=== PATIENT | male | born 1980 | race Caucasian/White ===

== ENCOUNTER 2020-05-15 11:44 | Emergency (ER) | payer MEDICAID ==
[~2020-05-15] VITALS: Ht 182.9 cm; Wt 83.0 kg
--- NOTE | 2020-05-15 11:53 | NUR ---
LASHELL LEIGH FROM [facility]. PT C/O +ETOH, 8-12 HURRICANES DAILY, 6 ALREADY TODAY. 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 PT CONNECTED TO MONITORING. PT HAS ALL OF HIS PERSONAL BELONGINGS WITH HIM, HE CHECKED OUT OF THE MOTEL. AWAITING ORDERS AT THIS TIME.
--- NOTE | 2020-05-15 12:33 | NUR ---
PT COMPLIANT WITH LAB DRAWN. PT AWARE OF NEED FOR URINE, URINAL PROVIDED. PT USED RESTROOM UPON ARRIVAL TO ED.
[2020-05-15 12:39] LABS: BASOPHILS # (AUTO) 0.05 x10^3/uL (0-0.1); BASOPHILS % (AUTO) 1 % (0-1); EOSINOPHILS % (AUTO) 3 % (1-7); LYMPHOCYTES # (AUTO) 2.34 x10^3/uL (1-3.4); LYMPHOCYTES % (AUTO) 34 % (22-44); MD NO; MEAN CORPUSCULAR HEMOGLOBIN 31.4 pg (27.5-34.5); MEAN CORPUSCULAR HGB CONC 33.7 g/dL (33.2-36.2); MEAN PLATELET VOLUME 8.3 fL (7.4-10.4); MONOCYTES # (AUTO) 0.56 x10^3/uL (0.2-0.8); MONOCYTES % (AUTO) 8 % (2-9); NEUTROPHILS # (AUTO) 3.65 x10^3/uL (1.8-6.8); NEUTROPHILS % (AUTO) 54 % (42-75); PLATELET COUNT 152 x10^3/uL (130-400); RED BLOOD COUNT 4.94 x10^6/uL (4.38-5.82); RED CELL DISTRIBUTION WIDTH 14.8 % (9.4-14.8)
[2020-05-15 12:51] LABS: ALBUMIN 3.7 g/dL (3.4-5.0); ANION GAP 4 mmol/L (5-15); CALCIUM 8.4 mg/dL (8.5-10.1); CHLORIDE 114 mmol/L (98-107); CREATININE 0.84 mg/dL (0.7-1.3)
--- NOTE | 2020-05-15 12:53 | NUR ---
PT PROVIDED URINE SAMPLE. UDS COLLECTED AND TAKEN TO LAB.
[2020-05-15 13:03] LABS: ALANINE AMINOTRANSFERASE 30 U/L (12-78); ALKALINE PHOSPHATASE 138 U/L (45-117); BILIRUBIN,TOTAL 0.2 mg/dL (0.2-1.0); SALICYLATE LEVEL 5.3 mg/dL (2.8-20.0); TOTAL PROTEIN 7.1 g/dL (6.4-8.2)
[2020-05-15 13:21] LABS: AMPHETAMINE SCREEN, URINE Positive (Negative); BARBITURATE SCREEN, URINE Negative (Negative); BENZODIAZEPINE SCREEN, URINE Negative (Negative); CANNABINOID SCREEN, URINE Negative (Negative); COCAINE SCREEN, URINE Negative (Negative); METHADONE SCREEN, URINE Negative (Negative); OPIATE SCREEN, URINE Negative (Negative)
--- NOTE | 2020-05-15 13:25 | NUR ---
ALL RESULTS ARE BACK AT THIS TIME. CHART UP FOR RECHECK.
--- NOTE | 2020-05-15 14:08 | NUR ---
PT TO SPEAK WITH PSYCH WHEN SOBER.
--- NOTE | 2020-05-15 16:35 | NUR ---
PT AMBULATED TO RESTROOM WITH STEADY GAIT. DIET TRAY PROVIDED. PSYCH FINANCIAL ANALYST ACCOUNTANT TO ASSESS PT WHEN MORE SOBER.
--- NOTE | 2020-05-15 18:06 | NUR ---
PT RESTING COMFORTABLY ON GURNEY. RESP EVEN AND UNLABORED. PT IN DIRECT SIGHT OF SITTER.
--- NOTE | 2020-05-15 22:01 | NUR ---
PT BREATHALYZER 0.74. ORDER PLACED FOR TELEPSYCH CONSULT. TELEPSYCH CAMERA IN ROOM. PT AWARE OF CONSULT.
[2020-05-15] MEDS ORDERED: LORazepam 2 MG/ML, 1ML ONE (22:38)
--- NOTE | 2020-05-15 22:45 | NUR ---
THIS RN SPOKE WITH TELEPSYCH MD. MD RECOMMENDS CIWA PRECAUTIONS. THE PT IS GOING THROUGH WITHDRAWALS, NOT PSYCH ISSUES. NOTIFIED ERMD. RECEIVED VERBAL ORDER FOR PIV PLACEMENT AND ATIVAN 2MG IV ONCE. PIV PLACE AND MEDS ADMIN. PT RESTING ON GURNEY, ALREADY LESS FIDGITY. TELEPSYCH MD TO FAX RECOMMENDATIONS.
[2020-05-15] MEDS ORDERED: LORazepam 2 MG/ML, 1ML IVPush ONE (23:00)
--- NOTE | 2020-05-15 23:02 | NUR ---
REPORT GIVEN TO JOSE CARLOS FINE.
--- NOTE | 2020-05-15 23:04 | NUR ---
REPORT RECEIVED FROM BABATUNDE HAMLIN.
[2020-05-15 23:24] VITALS: BP 136/80
--- NOTE | 2020-05-15 23:25 | NUR ---
PATIENT CLEARED FOR DISCHARGE BY MD MOREIRA. PATIENT ABLE TO AMBULATE WITHOUT COMPLICATIONS. PATIENT LEFT WITH ALL BELONGINGS.
== END 2020-05-15 23:27 | disposition home or self-care (01) ==
LOC: ED 12:14
DX: F10.220 Alcohol dependence with intoxication, uncomplicated (principal); R45.851 Suicidal ideations; F19.14 Other psychoactive substance abuse with psychoactive substance-induced mood disorder; Y90.9 Presence of alcohol in blood, level not specified
CPT/HCPCS: 36415; 80053; 80307; 85025; 99283; J2060